=== PATIENT | male | born 1970 | race Caucasian/White ===

== ENCOUNTER → 2018-07-27 | Outpatient (CLI) | payer BC ==
[2018-07-27 18:14] LABS: BASO % 0.2 % (0.0-1.0); EOS # 0.4 10^3/uL (0.0-0.50); EOS % 6.7 % (0.0-3.0); HEMATOCRIT 50.5 % (42.0-52.0); HEMOGLOBIN 15.9 g/dl (13.5-17.5); LYMPH # 1.7 10^3/uL (1.5-4.5); LYMPH % 27.2 % (24.0-44.0); MEAN CORPUSCULAR HEMOGLOBIN 24.9 pg (27.0-33.0); MEAN CORPUSCULAR HGB CONC 31.5 g/dl (32.0-36.5); MONO # 0.5 10^3/uL (0.0-0.8); MONO % 7.8 % (0.0-5.0); NEUTROPHILS # 3.7 10^3/uL (1.8-7.7); NEUTROPHILS % 57.6 % (36.0-66.0); PLATELET COUNT, AUTOMATED 246 10^3/uL (150-450); RED BLOOD COUNT 6.39 10^6/uL (4.30-6.10); WHITE BLOOD COUNT 6.4 10^3/uL (4.0-10.0)
[2018-07-27 18:38] LABS: IMMUNOGLOBULIN G 798 MG/DL (681-1648); IMMUNOGLOBULIN M 31.4 MG/DL (40-230); RHEUMATOID FACTOR QUANT < 10.0 IU/ML (<15.0)
== END ==
LOC: M SMT 14:52
PROVIDERS: ATTEND Internal Medicine Pulmonary Disease
DX: J45.40 Moderate persistent asthma, uncomplicated (principal)

== ENCOUNTER → 2020-11-08 | Outpatient (CLI) | payer BC ==
--- NOTE | 2020-11-11 14:36 | SLEEPCENT ---
DATE: 11/08/2020 ORDERED BY: Emi Franco MD Nocturnal polysomnography was performed for evaluation of sleep physiology in this patient with a history of excessive somnolence, snoring, and nonrestorative sleep. Eight hours and 22 minutes of data were reviewed. There were 465.5 minutes of sleep identified. Sleep latency was short at 7 minutes. REM sleep was somewhat delayed at 107 minutes. Sleep architecture showed some initial fragmentation. There were three REM cycles noted. Overall sleep efficiency was 94.1%. The electrocardiogram showed a sinus rhythm with an average heart rate of 50 beats per minute. EEG showed normal waveforms for wake and sleep. There were 39 respiratory events identified of 10 seconds in duration or greater for an apnea-hypopnea index of 5.4. The events were obstructive, not exclusive to sleep stage nor to body posture. Arousals from respiratory events occurred 1.9 times per hour, and oxygen desaturations were seen into the low 80s. There was some minor activity in the limb EMG leads but limb movement arousals were few. Snoring was noted throughout the study. IMPRESSIONS: Mild obstructive sleep apnea syndrome (G47.33). Apnea-hypopnea index 5.4. RECOMMENDATION: The patient should be referred [facility]. In the interim, alcohol and sedative avoidance should be practiced and caution exercised during the operation of motor vehicles. cc: Dawn Villarreal RPA
== END ==
LOC: M SLEEP 20:00
PROVIDERS: ATTEND Internal Medicine Pulmonary Disease
DX: G47.30 Sleep apnea, unspecified (principal)

== ENCOUNTER → 2020-12-18 | Outpatient (CLI) | payer BC ==
--- NOTE | 2020-12-19 14:39 | SLEEPCENT ---
DATE: 12/18/2020 ORDERED BY: Dr. Franco Nocturnal polysomnography was performed for the titration of pressure therapy in this patient with obstructive sleep apnea syndrome, apnea-hypopnea index 5.4. For testing, the patient was fit with a ResMed AirFit F20 full-face mask of medium size. There was 4 cm of water pressure applied to the circuit, and the lights were extinguished. There was 8 hours and 14 minutes of data reviewed. There was 459 minutes of sleep identified. Sleep latency was normal at 13 minutes. REM sleep was mildly delayed at 102 minutes. Sleep architecture was good with four REM cycles. Overall sleep efficiency was 94.3%. The electrocardiogram showed a sinus rhythm with an average heart rate of 50 beats per minute. Rate ranged 40-80. EEG showed normal waveforms for wake and sleep. Respiratory events were fully palliated with a CPAP at a pressure of +10, and remaining measures of sleep physiology were normal. IMPRESSION: Obstructive sleep apnea syndrome (G47.33). RECOMMENDATION: Night use of pressure therapy, 10 cm of water.
== END ==
LOC: M SLEEP 20:00
PROVIDERS: ATTEND Internal Medicine Pulmonary Disease
DX: G47.33 Obstructive sleep apnea (adult) (pediatric) (principal)